=== PATIENT | male | born 1990 | race Two or more races ===

== ENCOUNTER 2024-07-23 16:17 | Emergency (ER) | payer OTHER ==
[~2024-07-23] VITALS: Ht 172.7 cm; Wt 131.1 kg
[2024-07-23] MEDS ORDERED: KETOROLAC TROMETHAMINE 60 MG VIAL IM ONE ×2 (17:15→17:40)
[2024-07-23] MEDS ORDERED: DEXAMETHASONE SODIUM PHOSPHATE 4 MG/ML VIAL IM ONE (17:15)
[2024-07-23] MEDS ORDERED: DEXAMETHASONE SODIUM PHOSPHATE 4 MG/ML VIAL ONE (17:40)
== END 2024-07-23 18:23 ==
LOC: ER 16:17
DX: K64.8 Other hemorrhoids (principal); K59.00 Constipation, unspecified